=== PATIENT | female | born 1995 | race Caucasian/White ===

== ENCOUNTER 2021-12-31 13:05 | Outpatient (CLI) | payer OTHER, SELFPAY ==
--- NOTE | ~2021-12-31 | US_ITS ---
EXAMINATION: US OB <=14 wk fetus w TV DATE: 12/31/2021 14:31 INDICATION: First trimester dating and viability assessment TECHNIQUE: Real-time pelvic transabdominal and transvaginal ultrasound was performed. COMPARISON: None. FINDINGS: The uterus measures 9.3 x 5.6 x 6.8 cm. There is an intrauterine gestational sac. A yolk s ac is identified. heart motion is identified measuring 135 beats per minute (bpm) by M-mode Dop pler. The crown rump length measures 8 mm , which correlates with an estimated gestational age of 6 weeks and 5 day(s) (+/-) 4 day(s). The right ovary measures 4.7 x 2.6 x 3.5 cm. The left ovary measures 3 x 2.3 x 2.1 cm. There is chris l vascular flow in the ovaries. There is no free fluid in the pelvis. IMPRESSION: 1. Live intrauterine with an estimated gestational age of 6 weeks and 5 day(s) (+/-) 4 day( s) and an estimated delivery date of 08/21/2022. Reviewed, dictated and finalized at location B. IMPRESSION: 1. Live intrauterine with an estimated gestational age of 6 weeks and 5 day(s) (+/-) 4 day(s) and an estimated delivery date of 08/21/2022.
== END 2021-12-31 13:06 | disposition home or self-care (01) ==
PROVIDERS: Visit Provider Obstetrics & Gynecology Gynecology
DX: Z34.91 Encounter for supervision of normal pregnancy, unspecified, first trimester (principal); Z3A.01 Less than 8 weeks gestation of pregnancy
CPT/HCPCS: 76801; 76817

== ENCOUNTER 2022-01-19 10:43 | Outpatient (RCR) | payer OTHER, SELFPAY | END 2022-04-19 23:59 | disposition home or self-care (01) | LOC: ANHLAB 10:43 | PROVIDERS: Visit Provider Obstetrics & Gynecology Gynecology | DX: O26.851 Spotting complicating pregnancy, first trimester (principal); Z3A.00 Weeks of gestation of pregnancy not specified | CPT/HCPCS: 36415; 84702; 85461 ==

== ENCOUNTER 2022-08-11 10:03 | Outpatient (CLI) | payer OTHER, SELFPAY ==
[2022-08-11 10:16] LABS: Hematocrit 34.7 % (37.0-47.0); Hemoglobin 11.4 g/dL (12.0-15.0); Mean Corpuscular HGB Conc 32.9 g/dl (32-36); Mean Corpuscular Hemoglobin 30.5 pg (26-34); Mean Corpuscular Volume 92.8 fl (80-100); Mean Platelet Volume 8.7 fl (7.4-10.4); Platelet Count Result 262 k/mm3 (150-375); Red Blood Count 3.74 M/mm3 (4.2-5.4); Red Cell Distribution Width 14.8 % (11.5-14.5); White Blood Count 11.2 K/mm3 (4.5-10.0)
[2022-08-12 10:05] LABS: Rapid Plasma Reagin Non-Reactive (NonReactive)
== END 2022-08-11 10:04 | disposition home or self-care (01) ==
PROVIDERS: Visit Provider Obstetrics & Gynecology Gynecology
DX: Z01.812 Encounter for preprocedural laboratory examination (principal); O34.219 Maternal care for unspecified type scar from previous cesarean delivery
CPT/HCPCS: 36415; 85027; 86592; 86850; 86900; 86901

== ENCOUNTER 2022-08-13 05:27 | Inpatient (IN) | payer OTHER, SELFPAY ==
[2022-08-13] VITALS (63 sets, daily range): BP systolic 81–182; BP diastolic 46–160; PULSE 57–149; RESP 16–18; TEMP 36.3–37.1; O2SAT 97–100; BMI 35.1
--- NOTE | 2022-08-13 06:23 | LDADM ---
This patient, Ilsa Mcmullen, was admitted to /Delivery/Recovery 120 on 08/13/22 at 05:27. Plans for labor, pain management and were discussed with patient. Patient/family oriented to hospital policies and general routines including ID bracelet, bed and alarms, visiting hours, pain management, procedures, bathroom and other care routines, personal items, smoking policy, room service/diet and guest tray routines, security routines, and visiting hours. Patient/Family are encouraged to report perceived risks to care and to ask questions if they do not understand what they are told or what they should do. See OBIX for further documentation.
[2022-08-13] MEDS: LACTATED RINGERS 1,000 ML 125 ML IV CONT (06:30)
--- NOTE | 2022-08-13 07:01 | P.PNAN_ITS ---
Anes - Initial Pre Proc Eval Procedure: Operation Date: 08/13/22 07:30 Proposed Procedures p Repeat Section - Sandy Meier MD Date/Time: 08/13/22 07:01 Surgeon: Sandy Meier MD Pre Op Diagnosis: C/S Patient Data Age: 27 Gender: F Height: 1.7 m Weight: 101.8 kg Last Vital Signs Temp 36.3 C L 08/13/22 05:45 Pulse 98 08/13/22 05:45 Resp 16 08/13/22 05:45 BP 112/80 08/13/22 05:45 O2 Del Method Room Air 08/13/22 06:13 Allergies Allergy/AdvReac Type Severity Reaction Status Date / Time No Known Allergies Allergy Verified 07/24/22 13:01 Home Medications Medication Instructions Recorded Confirmed Type aspirin 81 mg tablet 81 mg PO 07/24/22 History cholecalciferol (vitamin D3) 1,250 1,250 mcg PO WEEKLY 07/24/22 08/13/22 History mcg (50,000 unit) tablet metformin 500 mg tablet 500 mg PO BID 07/24/22 08/13/22 History prenat.vits,maryse,eka-bdng-ctcdf 1 tablet PO HS 07/24/22 08/13/22 History Patient hx anesthesia problems: none Family hx anesthesia problems: none Results Review: All pre-operative results and documents have been reviewed as part of the pre- operative evaluation. [facility]LY [facility] Past Medical History Medical History PCOS (polycystic ovarian syndrome) Family History Family History Daughter [employer] association Grandparent Cervical cancer Asthma Hypertension Diabetes mellitus Social History Social History Smoking status: Never smoker Substance use: never Lack of Transportation: No Lack of Food: Never True Current Housing: I Have Housing Concerned About Future Housing: No Difficulty Paying Gas/Electric Bills: No Difficulty Paying for Meds: No Currently Unemployed: No Education: High School Diploma/GED Difficulty w/ Childcare or Family Care: No Spiritual care concerns: No Anes - Eval Final PreProcedure Day of Procedure 08/13/22 07:01 Patient weight: obese Heart: regular rate and rhythm Lungs: clear to auscultation Airway: Mallampati scale class II Neurological: alert and oriented Last oral intake: >/= 8 hours ASA classification: II Emergent: no Anesthetic plan: proceed Anesthesia type and monitoring: regional spinal and standard monitoring Results Review: All pre-operative results and documents have been reviewed as part of the pre- operative evaluation. Informed Consent: The patient's anesthetic plan and its attendant risks and benefits were discussed with the patient/family/POA. Questions were solicited and answers provided to the satisfaction of the patient/family/POA.
--- NOTE | 2022-08-13 07:07 | P.HP_ITS ---
H&P: HPI History of Present Illness Date/Time: 08/13/22 07:07 Chief Complaint: Repeat csection Narrative: 27 yo A1 at 39 wks for repeat csection. has been uncomplicated. labs: A+, RPR -, HIV-, HBSAg -, Rubella immune, GBS -. Review of Systems Review of Systems: not repeated day of surgery; patient states no changes in status [facility] Past Medical History Medical History (Updated 08/13/22 @ 07:10 by Sandy Meier MD) PCOS (polycystic ovarian syndrome) Surgical History Surgical History (Updated 08/13/22 @ 07:10 by Sandy Meier MD) History of Family History Family History Daughter [employer] association Grandparent Cervical cancer Asthma Hypertension Diabetes mellitus Social History Social History Smoking status: Never smoker Substance use: never Lack of Transportation: No Lack of Food: Never True Current Housing: I Have Housing Concerned About Future Housing: No Difficulty Paying Gas/Electric Bills: No Difficulty Paying for Meds: No Currently Unemployed: No Education: High School Diploma/GED Difficulty w/ Childcare or Family Care: No Spiritual care concerns: No Meds Home Medications and Allergies Home Medications Medication Instructions Recorded Confirmed Type aspirin 81 mg tablet 81 mg PO 07/24/22 History cholecalciferol (vitamin D3) 1,250 1,250 mcg PO WEEKLY 07/24/22 08/13/22 History mcg (50,000 unit) tablet metformin 500 mg tablet 500 mg PO BID 07/24/22 08/13/22 History prenat.vits,maryse,kue-jsnj-huyxq 1 tablet PO HS 07/24/22 08/13/22 History Allergies Allergy/AdvReac Type Severity Reaction Status Date / Time No Known Allergies Allergy Verified 07/24/22 13:01 Vital Signs Vital Signs - 24 hr 08/13/22 05:45 08/13/22 06:13 Temperature 97.4 F L Pulse Rate 98 Respiratory Rate 16 Blood Pressure 112/80 Oxygen Delivery Room Air Exam Const: General: healthy appearing and alert Orientation/consciousness: patient oriented x3 Resp: Effort & Inspection: normal respiratory effort GI: GI Palp: Yes Soft to palpation, No Tenderness to palpation present (GI) and Yes Other GI palpation findings present (Fundal height 41) : External Female Exam: normal external appearance Speculum Exam - Vagina: normal appearance of the vagina and normal vaginal discharge Speculum Exam - Cervix: normal appearance of the cervix Bimanual exam- vagina & uterus: consistency normal Bimanual Exam- Adnexa, other: normal adnexae and No adnexal tenderness Neuro: General: patient oriented x3 Assessment and Plan Assessment and plan (1) 39 weeks gestation of : Code(s): Z3A.39 - 39 weeks gestation of Status: Acute (2) History of : Code(s): Z98.891 - History of uterine scar from previous surgery Status: Acute Assessment and Plan: Plan repeat csection
--- NOTE | 2022-08-13 07:07 | WPDHPUPDATE1 ---
History and Physical Update Update Date/Time: 08/13/22 07:07 History and Physical has been reviewed, including an updated exam of the patient. There are NO changes in the patient's condition. Risks, benefits, and alternatives have been discussed and questions answered. Patient agrees to proceed with procedure.
[2022-08-13] MEDS: ceFAZolin 2 GM/D5W 50 ML 2 GM/50 ML BAG IVPB (07:24)
--- NOTE | 2022-08-13 08:17 | W.PM.PROC2 ---
Procedure Note - Detailed Date of Procedure 08/13/22 Pre-op Diagnosis Intrauterine at 39 weeks previous section declines trial of labor Post-op Diagnosis Same Procedure Performed repeat low-transverse section Surgeon Sandy Meier MD Anesthesia Spinal Findings male 9lb 4oz with 8 and 9 Apgars. Normal-appearing tubes, ovaries, and uterus. Description of Procedure The patient was taken to the operating room and placed under anesthesia in the dorsal supine position with a leftward tilt. Once anesthesia was deemed adequate she was prepped and draped in usual sterile fashion. Pfannenstiel skin incision was made through the prior incision and carried down to the fascia which was nicked in the midline. The incision was extended laterally using Segovia scissors. Bleeding vessels in the subcutaneous tissue were cauterized for hemostasis. The rectus muscles were in the midline and the peritoneum tented and entered with Metzenbaum scissors. The incision was extended with blunt traction. The bladder blade is placed and the vesicouterine peritoneum grasped with a Peon. The incision was made and the bladder flap created using blunt and sharp dissection. The bladder blade is replaced. The lower uterine segment was incised in a transverse fashion with the scalpel. The incision was extended with blunt traction. The membranes are ruptured and clear fluid noted. The infant's head was brought into the incision and was difficult to deliver. The kiwi vacuum was placed and the head delivered over 1 pull. The kiwi was removed and the remainder of the delivered. The cord was clamped and cut and the infant handed to awaiting nursery nurse. Cord gases and cord blood were taken. The placenta was removed using manual traction. The uterus is cleared of all clots and debris and exteriorized. The uterine incision was closed using 0 Monocryl in a running locked fashion with the same suture used to imbricate. Good hemostasis is noted. The cul-de-sac is irrigated and the uterus returned to the abdomen the gutters are irrigated and the incision again inspected and noted to be hemostatic. The fascia was then closed using 0 Vicryl in a running fashion. Subcutaneous tissues are irrigated and noted to be hemostatic. The skin is closed using 4-0 Vicryl in a subcuticular fashion. Dermaflex was placed over the incision. Sponge, needle, and instrument counts are correct per the OR staff. Patient received Ancef prior to incision. Patient was taken to recovery in stable condition. Estimated Blood Loss 400 Drains Yes ( Sargent catheter) Packing No Pathology None sent Complications No immediate complications Condition Stable Disposition Floor
--- NOTE | 2022-08-13 08:21 | PM.OBDSVD ---
DS: Admitting Diagnosis Discharge Date 08/15/22 Admitting Diagnosis intrauterine at 39 weeks with previous section DS: Discharge Diagnosis Discharge Diagnosis (1) delivery delivered: Code(s): O82 - Encounter for delivery without indication Status: Acute (2) History of : Code(s): Z98.891 - History of uterine scar from previous surgery Status: Acute (3) 39 weeks gestation of : Code(s): Z3A.39 - 39 weeks gestation of Status: Acute OB - DS: Summary OB Procedures : Ultrasound OB Procedures Intrapartum: low cervical, transverse OB Procedures: : None Peripartum Data Infant Delivery Method: Section Procedures: Procedures Operation Date: 08/13/22 07:30 <No data on this case meets the specified criteria> complications: none Status at Discharge Functional status at discharge: independent ambulation Overall status at discharge: patient is progressing back to baseline Time Spent with Patient Time attestation: Total time spent providing and/or coordinating discharge services: Discharge Plan Discharge Attending physician on discharge: Sandy Meier Discharging Clinician: Snady Meier Anticipated Discharge Date/Time: 08/15/22 08:22 Patient Disposition: Home, Self-Care Activity: may shower, may drive after 2 weeks and pelvic rest Diet: regular Wound Care Instructions: incision open to air Discharge Instructions: Education: Mom and Baby Guide Given to: Mother Follow-Up: Call your delivering provider's office for an appointment to be seen in: 1 Week Mom and baby should come to the [facility] for the follow-up appointment. Appointment Date/Time: August 18, 2022 at 9:00 am What to expect at your follow-up visit: Blood Pressure Check Call [phone] if you are unable to keep your appointment time. BREAST CARE: * Wear a snug supportive bra. * For engorgement discomfort: Breast Feeding: * Apply warm moist washcloths * Express milk as needed to relieve engorgement * Wear loose clothing Bottle Feeding: * May apply ice packs * For sore nipples: * Identify correct latch-on * Apply warm moist washcloths before and after nursing * Air dry nipples after nursing * May apply Lansinoh cream to nipples ABDOMINAL INCISION: (if applicable) * Allow incision to air dry * Do NOT use lotions for powders on your incision * When showering, allow soap and water to run over the incision, but do not wash incision PERINEAL CARE: * Until bleeding stops, use your payton bottle after urinating * Change your pad frequently throughout the day * No tub baths until seen by your physician - You may shower ACTIVITY: * Rest as much as possible. * Do not exercise or lift anything heavier than your baby (such as laundry or other children.) * Avoid stairs or driving as much as possible. * Do not put anything into the vagina. No douching, tampons, or sexual activity until seen by physician. NOTIFY PHYSICIAN IF YOU HAVE ANY QUESTIONS OR IF ANY OF THE FOLLOWING SYMPTOMS OCCUR: * If your incision becomes red, swollen, or more painful than what you have experienced in the hospital. * If your vaginal bleeding becomes foul smelling. * If your vaginal bleeding becomes more heavy than a period or if your bleeding changes from pink to bright red. However, you may pass an occasional walnut-sized clot once or twice for the first week . * If you experience a sharp, shooting pain in you calves. * If you discover a hard, reddened area on your breast or if you experience flu-like symptoms. * If you have a fever of 100.4 or greater DIET: * Eat regular, well-balanced meals. * Drink plenty of fluids daily. If , drink to thirst. Patient In
[2022-08-13] MEDS: DEXTROSE 5%/0.45% SOD CHL 1,000 ML 125 ML IV CONT (10:44)
--- NOTE | 2022-08-13 10:55 | OBPPTRN ---
Patient transferred to post room # 282 via stretcher. Support person present. PT introductions made and plan of care discussed per postop c section, pain management, breast feeding, daily care activities and baby in level 2 nursery. PT and fob received such instructions this shift per one to one discussion, mom baby care guide and demonstrations. NO barriers to learning identified at this time. Oriented to unit, room, information board, rooming in, admission packet and security measures. Patient verbalizes understanding.
[2022-08-13] MEDS: HYDROcodone/acetaminophen (*CRX) 5-325 MG TABLET 1 TAB PO ×4 (13:05→23:33)
[2022-08-13] MEDS: DOCUSATE SODIUM 100 MG CAPSULE PO ×2 (13:05→17:14)
[2022-08-13] MEDS: LANOLIN (LANSINOH) 7.5 GM CREAM 1 APPLIC TOPICAL (13:05)
[2022-08-13] MEDS: KETOROLAC 30 MG/ML VIAL (*BKC) IV PUSH (13:06)
[2022-08-13] MEDS: metFORMIN HCL 500 MG TABLET PO ×2 (13:07→20:42)
[2022-08-13] MEDS: MULTIVIT/MIN/PREN/FOL AC/IRON TABLET 1 TAB PO (13:07)
[2022-08-13] MEDS: SIMETHICONE 80 MG TAB.CHEW PO ×3 (13:07→20:42)
[2022-08-14] MEDS: HYDROcodone/acetaminophen (*CRX) 5-325 MG TABLET 1 TAB PO ×4 (04:05→21:45)
[2022-08-14] MEDS: IBUPROFEN 600 MG TABLET PO ×3 (04:05→21:45)
[2022-08-14] MEDS: SIMETHICONE 80 MG TAB.CHEW PO ×2 (04:05→08:05)
[2022-08-14 04:30] LABS: Basophils Percent Auto 0.4 % (0.2-1.2); Eosinophils Absolute Auto 0.1 K/mm3 (0-0.3); Hematocrit 30.9 % (37.0-47.0); Immature Granulocyte Absolute 0.07 K/mm3 (0.00-0.031); Immature Granulocyte Percent A 0.7 % (0-0.5); Lymphocytes Absolute Auto 2.92 K/mm3 (0.9-3.2); Lymphocytes Percent Auto 27.9 % (18.3-44.2); Mean Corpuscular HGB Conc 32.4 g/dl (32-36); Mean Corpuscular Hemoglobin 30.3 pg (26-34); Mean Corpuscular Volume 93.6 fl (80-100); Mean Platelet Volume 8.8 fl (7.4-10.4); Monocytes Absolute Auto 0.6 K/mm3 (0.1-0.6); Monocytes Percent Auto 6.1 % (2.6-8.5); Neutrophils Absolute Auto 6.7 K/mm3 (1.3-6.7); Neutrophils Percent Auto 63.9 % (45.5-73.1); Platelet Count Result 246 k/mm3 (150-375); Red Cell Distribution Width 15.2 % (11.5-14.5); White Blood Count 10.5 K/mm3 (4.5-10.0)
[2022-08-14 05:40] VITALS: BP 103/64; PULSE 77; RESP 18; TEMP 36.8; O2SAT 100
--- NOTE | 2022-08-14 07:43 | P.PNOB_ITS ---
OB - PN: Subj Subjective Date/time seen: 08/14/22 07:43 Patient comments: no complaints and pain well controlled baby status: doing well and NICU (transfered to [facility]) OB - PN: Obj Data Labs 08/14/22 04:08 Labs: Laboratory Results - last 24 hr 08/14/22 04:08 WBC 10.5 H RBC 3.30 L Hgb 10.0 L Hct 30.9 L MCV 93.6 MCH 30.3 MCHC 32.4 RDW 15.2 H Plt Count 246 MPV 8.8 Immature Gran % (Auto) 0.7 H Neut % (Auto) 63.9 Lymph % (Auto) 27.9 [place] % (Auto) 6.1 Eos % (Auto) 1.0 Baso % (Auto) 0.4 Lymph # (Auto) 2.92 [place] # (Auto) 0.6 Eos # (Auto) 0.1 Baso # (Auto) 0.0 Abs Immat Gran (auto) 0.07 H Absolute Neuts (auto) 6.7 Absolute Nucleated RBC 0.0 Nucleated RBC % 0.0 OB - PN A/P Plan day: 1 Plan: routine care and other (pass to [facility]) Time Spent With Patient Time: Total time spent is greater than 50% in coordination of care (as documented) at patient's floor/unit and/or counseling patient: Exam Narrative: inc c/d/i : Bimanual exam- vagina & uterus: other (Uterus firm, nt @U)
[2022-08-14] MEDS: DOCUSATE SODIUM 100 MG CAPSULE PO ×2 (08:05→16:17)
[2022-08-14] MEDS: metFORMIN HCL 500 MG TABLET PO ×2 (08:05→16:17)
[2022-08-14] MEDS: MULTIVIT/MIN/PREN/FOL AC/IRON TABLET 1 TAB PO (08:05)
[2022-08-14 08:55] VITALS: BP 105/74; PULSE 72; RESP 16; TEMP 37.3; O2SAT 100
--- NOTE | 2022-08-14 09:32 | WPDANLDPN2 ---
Anes-Prog Note L&D Date/Time: 08/14/22 09:32 Comfortable throughout: section Neuraxial method: spinal Epidural/Spinal procedure site: clean & non-tender Neuro status: Neuro function grossly intact. Cardiovascular status: normal Respiratory status: normal Airway patency: baseline Mental status: baseline Post-Op hydration status: normal Vital Signs: Last Vital Signs Temp 36.8 C 08/14/22 05:40 Pulse 77 08/14/22 05:40 Resp 18 08/14/22 05:40 BP 103/64 08/14/22 05:40 Pulse Ox 100 08/14/22 05:40 O2 Del Method Room Air 08/14/22 08:20 Pain score (VAS): 0 I/O: Intake & Output 08/13/22 08/14/22 08/14/22 23:59 07:59 15:59 Intake Total 2640 450 Output Total 2600 800 Balance 40 -350 Post-procedural complaints: none Patient feedback: Patient satisfied with anesthetic care.
--- NOTE | 2022-08-14 09:33 | WPDANLDNPN2 ---
Anes-Prog Note L&D-Neuraxial Date/Time: 08/14/22 09:33 Neuraxial medications: intrathecal PF morphine Opiod-related complaints: none Patient feedback: Patient satisfied with post-operative pain management.
[2022-08-14] MEDS: HYDROcodone/acetaminophen (*CRX) 10-325 MG TABLET 1 TAB PO (13:04)
--- NOTE | 2022-08-14 16:25 | PC.NURSE ---
Patient out on pass for therapeutic absence leave. Patient left at 16:25 .
[2022-08-14 21:00] VITALS: BP 124/81; PULSE 72; RESP 18; TEMP 36.9; O2SAT 100
--- NOTE | 2022-08-14 21:30 | PC.NURSE ---
Patient arrived back from therapeutic pass @ 2130 on 08/14/22
[2022-08-15] MEDS: HYDROcodone/acetaminophen (*CRX) 5-325 MG TABLET 1 TAB PO ×2 (02:30→07:45)
[2022-08-15] MEDS: IBUPROFEN 600 MG TABLET PO (02:30)
[2022-08-15 10:24] VITALS: BP 124/81; PULSE 90; RESP 18; TEMP 36.6; O2SAT 99
[2022-08-15] MEDS: MULTIVIT/MIN/PREN/FOL AC/IRON TABLET 1 TAB PO (10:24)
[2022-08-15] MEDS: metFORMIN HCL 500 MG TABLET PO (10:24)
[2022-08-15] MEDS: DOCUSATE SODIUM 100 MG CAPSULE PO (10:24)
[2022-08-15] MEDS: LANOLIN (LANSINOH) 7.5 GM CREAM 1 APPLIC TOPICAL (10:24)
[2022-08-15] MEDS: HYDROcodone/acetaminophen (*CRX) 10-325 MG TABLET 1 TAB PO (13:45)
--- NOTE | 2022-08-15 13:45 | PC.NURSE ---
Pt received discharge instructions per protocol and verbalized understanding of such care.
--- NOTE | 2022-08-15 14:05 | PC.NURSE ---
PT discharged to home ambulatory unaccompanied and taken to waiting car. Follow up appts confirmed
== END 2022-08-15 14:05 | disposition home or self-care (01) | DRG 540 ==
LOC: ANHLDR 05:44 → ANHOB2 10:59
PROVIDERS: Admitting Provider Obstetrics & Gynecology Gynecology; Visit Provider Obstetrics & Gynecology Gynecology
PROC: 10D00Z1 Extraction of Products of Conception, Low, Open Approach (ICD-10-PCS; CPT 59514; principal; 2022-08-13 07:30)
DX: O34.211 Maternal care for low transverse scar from previous cesarean delivery (principal); Z37.0 Single live birth; Z3A.39 39 weeks gestation of pregnancy
CPT/HCPCS: 36415; 85025; 85027; 86592; 86850; 86900; 86901; A9270; J0131; J0690; J1885; J2274; J2370; J2405; J7120